=== PATIENT | female | born 1990 | race Caucasian/White ===

== ENCOUNTER 2018-01-21 09:59 | Inpatient (IN) ==
[2018-01-21] MEDS ORDERED: ONDANSETRON 4 MG/2 ML VIAL IV PRN ×2 (12:28→18:41)
[2018-01-21] MEDS ORDERED: MEPERIDINE 50 MG/1 ML VIAL IV PRN (12:28)
[2018-01-21] MEDS ORDERED: BUTORPHANOL 2 MG/ML VIAL IV PRN (12:28)
[2018-01-21] MEDS ORDERED: LACTATED RINGERS 1,000 ML IV SCH (12:30)
[2018-01-21] MEDS ORDERED: OXYTOCIN/LR 20 UNIT/1,000 ML BAG IV SCH (12:30)
[2018-01-21 12:56] LABS: Basophils % 0.3 % (0.0-0.8); Hematocrit 39.6 VOL% (35.7-47.0); Hemoglobin 14.1 GM/DL (12.0-16.0); Immature Granulocytes % 0.4 %; Immature Granulocytes Absolute 0.03 #; Lymphocytes % 13.3 % (21.3-54.2); Mean Corpuscular HGB Conc 35.6 GM/DL (32-36); Mean Corpuscular Hemoglobin 34 PG (27-34); Mean Corpuscular Volume 94.1 FL (87-102); Mean Platelet Volume 12.5 FL (9.6-12.0); Monocytes # 0.3 10*3/uL (0.11-0.8); Neutrophils # 6.2 10*3/uL (1.4-7.4); Platelet Count 114 T/CUMM (130-400); Red Blood Count 4.21 MC/CUMM (3.8-5.5); Red Cell Distribution Width 13.1 % (9.3-17.3); White Blood Count 7.6 T/CUMM (4-12)
[2018-01-21 13:17] LABS: Albumin 3.1 G/DL (3.4-5.0); Bilirubin,Total 0.4 MG/DL (0.2-1.0); Osmolality,Calculated 273.5 MOS/KG (273-304); Potassium 3.9 MMOL/L (3.5-5.1); Total Protein 7.2 G/DL (6.4-8.3); Uric Acid 4.5 MG/DL (2.6-6.0)
[2018-01-21] MEDS ORDERED: PROMETHAZINE 25 MG/1 ML VIAL IM PRN (13:22)
[2018-01-21] MEDS ORDERED: ePHEDrine 50 MG/ML AMP IV PRN (13:22)
[2018-01-21] MEDS ORDERED: diphenhydrAMINE 50 MG/1 ML VIAL IV PRN (13:22)
[2018-01-21] MEDS ORDERED: CITRIC ACID/SODIUM CITRATE 30 ML UDCUP PO ONE (13:22)
[2018-01-21] MEDS ORDERED: hydrOXYzine HCL 25 MG/1 ML VIAL IM PRN (13:22)
[2018-01-21] MEDS ORDERED: FAMOTIDINE 20 MG/2 ML VIAL IV ONE (13:22)
[2018-01-21] MEDS ORDERED: fentaNYL 2 MCG/ROPIV 0.2% EPID 150 ML EPIDURAL SCH (13:30)
[2018-01-21] MEDS ORDERED: ePHEDrine 50 MG/ML AMP IV ONE (16:11)
[2018-01-21] MEDS ORDERED: ACETAMINOPHEN 325 MG TABLET PO PRN (18:41)
[2018-01-21] MEDS ORDERED: OXYTOCIN/LR 20 UNIT/1,000 ML BAG IV ONE (18:41)
[2018-01-21] MEDS ORDERED: oxyCODONE/ACETAMINOPHEN 5-325 MG TABLET PO PRN ×2 (18:41)
[2018-01-21] MEDS ORDERED: BISACODYL 10 MG SUPP RECTAL PRN (18:41)
[2018-01-21] MEDS ORDERED: HYDROCORTISONE 2.5% RECTAL CREAM 30 GM TUBE TOP PRN (18:41)
[2018-01-21] MEDS ORDERED: DIPH/TET/ACEL PERT BOOSTER VACCINE 0.5 ML VIAL IM ONE (18:41)
[2018-01-21] MEDS ORDERED: LANOLIN 50% CREAM 0.3 OZ TUBE TOP PRN (18:41)
[2018-01-21] MEDS ORDERED: WITCH HAZEL PADS 100/JAR TOP PRN (18:41)
[2018-01-21] MEDS ORDERED: RHO(D) IMMUNE GLOBULIN 300 MCG SYRINGE IM ONE (18:41)
[2018-01-21] MEDS ORDERED: BENZOCAINE 20%/MENTHOL 0.5% SPRAY 56 GM CAN TOP PRN (18:41)
[2018-01-21] MEDS ORDERED: MEASLES/MUMPS/RUBELLA VACCINE 0.5 ML VIAL SUBCUT ONE (18:41)
[2018-01-22] MEDS: DOCUSATE SODIUM 100 MG CAPSULE PO SCH ×2 (07:12→20:36)
[2018-01-22] MEDS: IBUPROFEN 800 MG TABLET PO PRN ×2 (07:16→19:42)
[2018-01-22 08:31] LABS: Basophils % 0.3 % (0.0-0.8); Eosinophils % 0.5 % (0.00-10.9); Hematocrit 32.7 VOL% (35.7-47.0); Immature Granulocytes % 0.5 %; Immature Granulocytes Absolute 0.03 #; Lymphocytes # 1.3 10*3/uL (1.4-4.0); Lymphocytes % 19.9 % (21.3-54.2); Mean Corpuscular HGB Conc 34.6 GM/DL (32-36); Mean Corpuscular Hemoglobin 33 PG (27-34); Mean Corpuscular Volume 94.8 FL (87-102); Mean Platelet Volume 13.2 FL (9.6-12.0); Monocytes # 0.4 10*3/uL (0.11-0.8); Monocytes % 5.5 % (1.7-12.7); Neutrophils # 4.7 10*3/uL (1.4-7.4); Neutrophils % 73.3 % (38.7-73.9); Red Blood Count 3.45 MC/CUMM (3.8-5.5); Red Cell Distribution Width 13.4 % (9.3-17.3); White Blood Count 6.4 T/CUMM (4-12)
[2018-01-22 08:42] LABS: Hemoglobin 11.3 GM/DL (12.0-16.0); Platelet Count 89 T/CUMM (130-400)
[2018-01-22 09:08] LABS: Hypochromasia Slight; Platelet Estimate Decreased
[2018-01-23 07:50] VITALS: BP 118/86
[2018-01-23] MEDS: IBUPROFEN 800 MG TABLET PO PRN (09:12)
[2018-01-23] MEDS: DOCUSATE SODIUM 100 MG CAPSULE PO SCH (09:12)
== END 2018-01-23 12:05 | disposition home or self-care (01) | DRG 775 ==
LOC: N.LDOUT 09:59 → N.LD 10:03 → N.OB 21:00
PROVIDERS: ADMIT Obstetrics & Gynecology; ATTEND Obstetrics & Gynecology

== ENCOUNTER 2021-04-15 14:46 | Inpatient (IN) ==
[2021-04-15] MEDS ORDERED: ONDANSETRON 4 MG/2 ML VIAL IV PRN (17:33)
[2021-04-15 17:53] LABS: Basophils % 0.3 % (0.0-0.8); Eosinophils % 0.3 % (0.00-10.9); Hematocrit 35.9 VOL% (35.7-47.0); Hemoglobin 11.8 GM/DL (12.0-16.0); Immature Granulocytes % 0.5 %; Immature Granulocytes Absolute 0.04 #; Lymphocytes # 1.2 10*3/uL (1.4-4.0); Mean Corpuscular HGB Conc 32.9 GM/DL (32-36); Mean Corpuscular Volume 94.2 FL (87-102); Mean Platelet Volume 11.6 FL (9.6-12.0); Monocytes % 3.1 % (1.7-12.7); Neutrophils % 80.8 % (38.7-73.9); Platelet Count 115 T/CUMM (130-400); Red Blood Count 3.81 MC/CUMM (3.8-5.5); Red Cell Distribution Width 13.9 % (9.3-17.3); White Blood Count 7.8 T/CUMM (4-12)
[2021-04-15] MEDS ORDERED: LACTATED RINGERS 1,000 ML IV SCH (18:00)
[2021-04-15] MEDS ORDERED: OXYTOCIN/LR 20 UNIT/1,000 ML BAG IV SCH (18:00)
[2021-04-15 18:11] LABS: Albumin 2.8 G/DL (3.4-5.0); Bilirubin,Total 0.5 MG/DL (0.20-1.00); Calcium 8.6 MG/DL (8.5-10.1); Potassium 3.1 MMOL/L (3.5-5.1); Total Protein 6.8 G/DL (6.4-8.2)
[2021-04-15] MEDS ORDERED: NALOXONE 0.4 MG/ML VIAL IV PRN (18:22)
[2021-04-15] MEDS ORDERED: FAMOTIDINE 20 MG/2 ML VIAL IV ONE ×2 (18:22→18:25)
[2021-04-15] MEDS ORDERED: PROMETHAZINE 25 MG/1 ML VIAL IM PRN (18:22)
[2021-04-15] MEDS ORDERED: ePHEDrine 50 MG/ML VIAL IV PRN ×2 (18:22)
[2021-04-15] MEDS ORDERED: CITRIC ACID/SODIUM CITRATE 30 ML UDCUP PO ONE (18:22)
[2021-04-15] MEDS ORDERED: diphenhydrAMINE 50 MG/1 ML VIAL IV PRN (18:22)
[2021-04-15] MEDS ORDERED: fentaNYL 2 MCG/ROPIV 0.2% EPID 100 ML EPIDURAL ONE (18:25)
[2021-04-15] MEDS ORDERED: ePHEDrine 50 MG/ML VIAL ONE (18:25)
[2021-04-15] MEDS ORDERED: CITRIC ACID/SODIUM CITRATE 30 ML UDCUP ONE (18:25)
[2021-04-15] MEDS ORDERED: fentaNYL 2 MCG/ROPIV 0.2% EPID 100 ML EPIDURAL SCH (18:30)
[2021-04-15 18:42] LABS: Anisocytosis Slight; Polychromasia Few
[2021-04-15 18:43] LABS: Platelet Estimate Adequate
[2021-04-15 20:01] LABS: Bilirubin,Urine Negative (Negative); Blood, Urine Negative (Negative); Glucose,Urine (UA) Negative (Negative); Ketones,Urine 20 mg/dL (Negative); Mucus,Urine Occasional /LPF (Occasional); Nitrite,Urine Negative (Negative); Protein,Urine Negative; Urine Appearance CLEAR (Clear); Urine Color Straw (Yellow); Urine Specific Gravity 1.004 (1.001-1.035); Urine Urobilinogen < 2.0 EU/DL (0.2-1.0)
[2021-04-15] MEDS ORDERED: OXYTOCIN/LR 30 UNIT/1,000 ML BAG IV ONE (21:26)
[2021-04-15] MEDS ORDERED: CARBOPROST TROMETHAMINE 250 MCG/ML AMP IM ONE (21:28)
[2021-04-15] MEDS ORDERED: miSOPROStoL 200 MCG TABLET ONE (21:28)
[2021-04-15] MEDS ORDERED: TRANEXAMIC ACID 1,000 MG/10 ML VIAL ONE (21:28)
[2021-04-15] MEDS ORDERED: METHYLERGONOVINE 0.2 MG/1 ML AMP ONE (21:28)
[2021-04-15 22:19] LABS: Cord Venous Blood HCO3 23.4 MMOL/L; Cord Venous Blood PCO2 42.5 MMHG; Cord Venous Blood PO2 26.5 MMHG
[2021-04-15] MEDS ORDERED: ACETAMINOPHEN 325 MG TABLET PO PRN (23:30)
[2021-04-15] MEDS ORDERED: oxyCODONE/ACETAMINOPHEN 5-325 MG TABLET PO PRN ×2 (23:30)
[2021-04-15] MEDS ORDERED: RHO(D) IMMUNE GLOBULIN 300 MCG SYRINGE IM ONE (23:30)
[2021-04-15] MEDS ORDERED: BISACODYL 10 MG SUPP RECTAL PRN (23:30)
[2021-04-15] MEDS ORDERED: LANOLIN 50% CREAM 0.3 OZ TUBE TOP PRN (23:30)
[2021-04-15] MEDS ORDERED: BENZOCAINE 20%/MENTHOL 0.5% SPRAY 56 GM CAN TOP PRN (23:30)
[2021-04-15] MEDS ORDERED: DIPH/TET/ACEL PERT BOOSTER VACCINE 0.5 ML VIAL IM ONE (23:30)
[2021-04-15] MEDS ORDERED: MEASLES/MUMPS/RUBELLA VACCINE 0.5 ML VIAL SUBCUT ONE (23:30)
[2021-04-15] MEDS ORDERED: OXYTOCIN/LR 20 UNIT/1,000 ML BAG IV ONE (23:30)
[2021-04-15] MEDS ORDERED: HYDROCORTISONE 2.5% RECTAL CREAM 30 GM TUBE TOP PRN (23:30)
[2021-04-15] MEDS ORDERED: WITCH HAZEL PADS 100/JAR TOP PRN (23:30)
[2021-04-15] MEDS: POTASSIUM CHLORIDE 20 MEQ TABLET PO PRN (23:47)
[2021-04-16] MEDS: POTASSIUM CHLORIDE 20 MEQ TABLET PO PRN ×3 (02:10→06:01)
[2021-04-16] MEDS: IBUPROFEN 800 MG TABLET PO PRN ×3 (02:56→21:07)
[2021-04-16 06:00] LABS: Basophils % 0.3 % (0.0-0.8); Eosinophils # 0.1 10*3/uL (0.0-0.87); Eosinophils % 0.8 % (0.00-10.9); Hematocrit 29.1 VOL% (35.7-47.0); Immature Granulocytes % 0.5 %; Immature Granulocytes Absolute 0.03 #; Lymphocytes # 1.1 10*3/uL (1.4-4.0); Lymphocytes % 16.6 % (21.3-54.2); Mean Corpuscular HGB Conc 33.7 GM/DL (32-36); Monocytes % 6.4 % (1.7-12.7); Neutrophils % 75.4 % (38.7-73.9); Red Blood Count 3.13 MC/CUMM (3.8-5.5); Red Cell Distribution Width 13.7 % (9.3-17.3); White Blood Count 6.4 T/CUMM (4-12)
[2021-04-16 06:18] LABS: Hemoglobin 9.8 GM/DL (12.0-16.0); Platelet Count 82 T/CUMM (130-400)
[2021-04-16] MEDS: DOCUSATE SODIUM 100 MG CAPSULE PO SCH ×2 (08:34→21:07)
[2021-04-16 10:49] LABS: Platelet Estimate Decreased; Polychromasia Slight
[2021-04-16 23:10] VITALS: BP 118/62
[2021-04-17] MEDS: DOCUSATE SODIUM 100 MG CAPSULE PO SCH (08:21)
[2021-04-17] MEDS ORDERED: DIPH/TET/ACEL PERT BOOSTER VACCINE 0.5 ML VIAL IM ONE (08:59)
== END 2021-04-17 10:33 | disposition home or self-care (01) | DRG 807 ==
LOC: N.LDOUT 14:46 → N.LD 14:49 → N.OB 04-16 12:12
PROVIDERS: ADMIT Obstetrics & Gynecology; ATTEND Obstetrics & Gynecology